=== PATIENT | male | born 1945 | race Caucasian/White ===

== ENCOUNTER 2017-11-09 07:55 | Emergency (ER) | payer BC ==
[2017-11-09 08:12] VITALS: RESP 18; TEMP 98.4
--- NOTE | 2017-11-09 09:51 | RAD ---
PROCEDURE: Right Knee Radiographs. HISTORY: COMPARISON: None available. FINDINGS: BONES: No acute displaced fracture. Small suprapatellar enthesophyte. JOINTS: No dislocation. JOINT EFFUSION: No significant joint effusion. OTHER FINDINGS: None. IMPRESSION: No acute displaced fracture, dislocation, or significant joint effusion identified. If symptoms persist, or if there is continued clinical concern, x-ray follow-up in 7-10 days should be considered.
--- NOTE | 2017-11-09 10:31 | C.PDOC ---
History Of Present Illness 72yo male, presents to ED with complaints of pain to his right knee since yesterday. Patient states at work, he walks a lot and also reports several days ago, he slipped on an icy surface and fell, landing on his knee. Patient states when he fell, he didn't feel pain but since yesterday he was having discomfort. He denies any other injuries, weakness, numbness. Patient offers no other medical complaints. Time Seen by Provider: 11/09/17 08:20 Chief Complaint (Nursing): Lower Extremity Problem/Injury History Per: Patient History/Exam Limitations: no limitations Onset/Duration Of Symptoms: Days Current Symptoms Are (Timing): Still Present Additional History Per: Patient - Knee Description Of Injury: Fell Past Medical History Reviewed: Historical Data, Nursing Documentation, Vital Signs Vital Signs: Last Vital Signs Temp 98.4 F 11/09/17 08:10 Pulse 90 11/09/17 10:36 Resp 18 11/09/17 10:36 BP 188/104 H 11/09/17 10:36 Pulse Ox 99 11/09/17 19:02 - Medical History PMH: HTN, Hypercholesterolemia Surgical History: No Surg Hx Family History: States: No Known Family Hx - Social History Hx Alcohol Use: No Hx Substance Use: No - Immunization History Hx Tetanus Toxoid Vaccination: No Hx Influenza Vaccination: No Hx Pneumococcal Vaccination: No Review Of Systems Except As Marked, All Systems Reviewed And Found Negative. Musculoskeletal: Positive for: Leg Pain (right knee pain) Neurological: Negative for: Weakness, Numbness Physical Exam - Physical Exam Appears: Non-toxic, No Acute Distress Skin: Normal Color Head: Atraumatic, Normacephalic Neck: Supple Extremity: Normal ROM, Tenderness (mild tenderness to medial patella), No Calf Tenderness, No Deformity, No Swelling Pulses: Right Dorsalis Pedis: Normal Neurological/Psych: Oriented x3 Gait: Steady ED Course And Treatment O2 Sat by Pulse Oximetry: 99 (RA) Pulse Ox Interpretation: Normal Medical Decision Making Medical Decision Making: Impression: Right knee pain Plan: -- XR Right knee Time: 1000 PROCEDURE: Right Knee Radiographs. HISTORY: COMPARISON: None available. FINDINGS: BONES: No acute displaced fracture. Small suprapatellar enthesophyte. JOINTS: No dislocation. JOINT EFFUSION: No significant joint effusion. OTHER FINDINGS: None. IMPRESSION: No acute displaced fracture, dislocation, or significant joint effusion identified. If symptoms persist, or if there is continued clinical concern, x-ray follow-up in 7-10 days should be considered. Patient informed of XR findings and is stable for discharge home. Patient placed on a knee brace by RN. Disposition - Disposition Referrals: Garfield Garduno III, MD [Staff Provider] - Disposition: HOME/ ROUTINE Disposition Time: 10:29 Condition: STABLE Additional Instructions: Follow up with your PMD and Orthopedist within 1-2 days. Return to ED if feel worse. Prescriptions: Ibuprofen [Motrin Tab] 600 mg PO Q8 #30 tab Instructions: Knee Pain (ED) Forms: [facility] [facility] ([place]wana), Work Excuse - Clinical Impression Clinical Impression: Knee pain - PA / PART TIME RECEPTIONIST / Resident Statement MD/DO has reviewed & agrees with the documentation as recorded. - Scribe Statement The provider has reviewed the documentation as recorded by the Roelibfaisal Arzate Provider Scribe Attestation: All medical record entries made by the Roelibe were at my direction and personally dictated by me. I have reviewed the chart and agree that the record accurately reflects my personal performance of the history, physical exam, medical decision making, and the department course for this patient. I have also personally directed, reviewed, and agree with the discharge instructions and disposition.
[2017-11-09 10:37] VITALS: BP 188/104; PULSE 90
[2017-11-09 11:38] VITALS: O2SAT 99
== END 2017-11-09 10:42 | disposition home or self-care (01) ==
LOC: C.ER 07:55
DX: M25.561 Pain in right knee (principal)

== ENCOUNTER → 2017-11-27 08:25 | Emergency (ER) | payer BC | END | disposition left against medical advice (07) | LOC: C.ER 08:25 | DX: Z02.89 Encounter for other administrative examinations (principal); M25.569 Pain in unspecified knee ==